=== PATIENT | male | born 1970 | race Caucasian/White ===

== ENCOUNTER → 2018-10-24 | Outpatient (CLI) | payer OTHER ==
--- NOTE | 2018-10-25 16:07 | TST ---
[place] [address] TREADMILL STRESS TEST Name: NOHEMIAPRIL Room: [facility]#: [id number] Admission: 10/24/18 Attend Phys: Colin Marinelli Discharge: Date of : 66 Date of Service: 10/24/18 1712 Report #: [id number] THIS REPORT FOR: //name// CC: Colin Marinelli DO DATE OF SERVICE: 10/24/2018 Resting 12-lead electrocardiogram demonstrates sinus rhythm and is within normal limits. The patient exercised for 9 minutes and 15 seconds according to a standard Deuce protocol. He denied chest discomfort. The patient had a resting heart rate of 96 with a peak heart rate of 174, exceeding the age predicted maximum. Blood pressure is 119/73 initially, increasing to 210/65 at peak exercise and falling to 117/70 during the post-exercise phase. There were no ischemic ST-T alterations noted. There were no significant supraventricular or ventricular arrhythmias. IMPRESSION: 1. Negative treadmill exercise test for provocation of ischemic ST-T alterations. 2. No chest pain provoked by exertion. 3. Appropriate heart rate and systolic blood pressure responses to exercise. 4. No significant arrhythmias noted. 5. Satisfactory level of fitness as the patient walked for 9 minutes and 15 seconds of a Deuce protocol. <ELECTRONICALLY SIGNED> By: Pascual Odom MD, [facility] 10/25/18 1607 1712 0018 Pascual Odom MD, [facility] /nt
== END ==
LOC: M.CRD 15:00
DX: N52.9 Male erectile dysfunction, unspecified (principal)